=== PATIENT | male | born 1940 | race Caucasian/White ===

== ENCOUNTER 2017-04-16 08:52 | Day surgery (SDC) | payer OTHER ==
[~2017-04-16] VITALS: Ht 170.2 cm; Wt 77.7 kg
[2017-04-16 09:27] VITALS: BP 153/100; PULSE 58; RESP 16; TEMP 98.1; O2SAT 96
[2017-04-16] MEDS ORDERED: BRIM0.2S4 EACH EYE (09:38)
[2017-04-16] MEDS ORDERED: MULT1TAB PO (09:38)
[2017-04-16] MEDS ORDERED: TRAM50TA PO (09:38)
[2017-04-16] MEDS ORDERED: DORZ2SOL15 EACH EYE (09:38)
[2017-04-16] MEDS ORDERED: ASPI81TA11 PO (09:38)
[2017-04-16] MEDS ORDERED: LISI40TA PO (09:38)
[2017-04-16] MEDS ORDERED: VITA20003 PO (09:38)
[2017-04-16] MEDS ORDERED: DILT1TAB6 PO (09:38)
[2017-04-16] MEDS ORDERED: PROS5TAB PO (09:38)
[2017-04-16] MEDS ORDERED: TERA10CA3 PO (09:38)
[2017-04-16] MEDS ORDERED: LATA0.002 EACH EYE (09:38)
[2017-04-16 09:52] LABS: AUTOMATED NEUTROPHIL # 3.5 TH/MM3 (1.8-7.7); BASOPHIL # 0.1 TH/MM3 (0-0.2); BASOPHIL % 0.8 % (0.0-2.0); EOSINOPHIL # 0.3 TH/MM3 (0-0.4); EOSINOPHIL % 4.3 % (0.0-4.0); HEMATOCRIT 44.4 % (39.0-51.0); HEMO FLAGS DIFF FINAL; LYMPH % 36.3 % (9.0-44.0); LYMPHOCYTE # 2.5 TH/MM3 (1.0-4.8); MEAN CELL VOLUME 89.1 FL (80.0-100.0); MEAN CORPUSCULAR HEMOGLOBIN 30.7 PG (27.0-34.0); MEAN CORPUSCULAR HGB CONC 34.4 % (32.0-36.0); MONO % 7.9 % (0.0-8.0); NEUT % 50.7 % (16.0-70.0); PLATELET COUNT 178 TH/MM3 (150-450); RED BLOOD COUNT 4.98 MIL/MM3 (4.50-5.90); RED CELL DISTRIBUTION WIDTH 13.2 % (11.6-17.2); WHITE BLOOD COUNT 6.8 TH/MM3 (4.0-11.0)
[2017-04-16 10:01] LABS: APTT (PATIENT) 26.7 SEC (24.3-30.1); INTERNATIONAL NORMALIZED RATIO 1.1 RATIO; PROTHROMBIN TIME - PATIENT 11.8 SEC (9.8-11.6)
[2017-04-16 10:06] LABS: BICARBONATE 22.3 MEQ/L (21.0-32.0); POTASSIUM 3.7 MEQ/L (3.5-5.1)
[2017-04-16] MEDS ORDERED: HEPARIN-NS/PF INJ 500 ML ONE (10:40)
--- NOTE | 2017-04-16 10:41 | EKG ---
Date Performed: 04/16/2017 Time Performed: 09:34:28 PTAGE: 77 years EKG: Sinus rhythm . Left axis deviation Inferior infarct - age undetermined Abnormal ECG NO PREVIOUS TRACING DOCTOR: Jeffrey Valencia Interpretating Date/Time 04/16/2017 10:40:42
[2017-04-16] MEDS ORDERED: MIDAZOLAM HCL 2 MG/2 ML VIAL ONE (10:42)
[2017-04-16] MEDS ORDERED: VERAPAMIL HCL 5 MG/2 ML VIAL ONE (10:43)
[2017-04-16] MEDS ORDERED: HEPARIN SODIUM - IV 10,000 UNITS/10 ML VIAL ONE (10:43)
[2017-04-16] MEDS ORDERED: NITROGLYCERIN INJ 5 ML ONE (10:43)
[2017-04-16] MEDS ORDERED: NS 1000P @30 MLS/HR (KVO) IV SCH (11:30)
[2017-04-16] MEDS ORDERED: IOHEXOL 350 MG/ML 100 ML BTL (for Cath Lab) OTHER ONE (12:00)
--- NOTE | 2017-04-16 12:12 | CATHPROC ---
[facility] HIS Report Study Information Study Number Admission Scheduled Start Study Start [id number] Apr 16 2017 8:52AM 04/16/2017 Apr 16 2017 10:37AM [place] [facility] Cardiac Catheterization Admit Source Facility Department Other [facility] - R[facility] Rehab Physician and Clinical Staff Initial Viktor Jesus Wire Harness Design Engineerjt Mcdonough RN, Lorenzo Wire Harness Design EngineerVannessa Altamirano RN Other cathlab, cathlab Recorder Michelle Leger,CULLET CRUSHER TECH2 Scrub [employer],RT(R) (BS) Procedures Performed Procedure Location (Site) Vessel Name Coronary Angiograms LCA Left Coronary Coronary Angiograms RCA Right Coronary IVUS LEFT MAIN ARTERY-(11 Left Coronary L Heart Cath Wire insertion Radial (right) Radial Art. Equipment Time Production Painter Description Size Mfg Part Number Used/Scraped WIRE, BALANCE MIDDLEWEIGHT [id number] 11:36 [employer] 190CM Used 190CM *[id number] TRANSDUCER, TRUWAVE [id number] 10:38 KATHLEEN FELIPE * Used W/STOCKCOCK *[id number] *[id number] *[id number] *[id number] *[id number] 10:38 LAFASO PACK, CCL CUSTOM * Used *[id number] 10:38 LAFASO SUPPORT, ARTERIAL ADULT [id number] Used BAND, RADIAL COMPRESSION TR [id number] 11:55 [employer] MEDICAL 24CM Used SHORT 24 *[id number] 10:38 Coreworks WIRE, EXCHANGE 260CM 3MMJ 260CM Used *[id number] 10:38 NAMIC MANIFOLD, 4 PORT * Used *[id number] 10:38 NYCOMED OMNIPAQUE, 350 MG, 150ML 150ML [id number] Used [id number] 10:38 CARDOSO MEDICAL BLANKET,WARM AIR CCL * Used *[id number] 11:32 TERUMInstamedia MEDICAL SHEATH, FR6 TERUMO (10CM) FR 6 [id number] Used SHEATH, FR6 TRANSRADIAL 10:38 TERUMO MEDICAL FR 6 [id number] Used SLENDER 10CM CATHETER, [facility] [place] [id number] 11:33 VOLCANO Used IMAGING *[id number] History: Current Medications Medication Dosage/Unit Route Frequency Last Date/Time Taken ASA LISINOPRIL History: Allergies Allergy Reaction seasonal History: Risk Factors Family History of Hypertension Dyslipidemia Previous AL Previous Heart Failure Premature CAD Yes Yes No Yes No Prior Valve Prior PCI Prior CABG Surgery No No No Cerebrovascular Peripheral Artery Chronic Lung On Dialysis Diabetes Disease Disease Disease No No No No No History: Symptoms/Diagnosis Selection Items Angina-unstable History: Stress Tests Stress or Imaging Studies Performed Yes Standard Exercise Stress Test No Stress Echo No Stress Test SPECT No Stress Test CMR Stress Test CMR Result Stress Test CMR Ischemia Risk/Extent Yes Positive Intermediate Cardiac CTA Coronary Calcium Score No No History: Other Current Smoker No Labs Hgb (g/dl) Hct (%) RBC (MIL/MM3) WBC (l/cumm) Platelets (thousands) 11.60-17.00 35.00-51.00 4.00-5.90 4.00-11.00 150.00-450.00 15.3 44.4 4.9 6.8 178 BUN (mg/dl) 7.00-18.00 15 Na (meq/l) K (meq/l) 136.00-145.00 3.50-5.10 143 3.7 INR (PTT:PT) 0.90-1.10 1.1 Medication Medication Total Dose (Bolus/Oral) Medication Total Dosage/Unit 1% XYLOCAINE 10 mL FENTANYL 25 mcg HEPARIN 5600 units RADIAL COCKTAIL 5 mL (Bolus) VERSED 0.5 mg Medications (Bolus/Oral) Medication Time Given Dosage/Unit Administered By Reason 1% XYLOCAINE 04/16/2017 11:11:53 AM 10 mL cathlab, cathlab Patient arrived on 10 mL 1% XYLOCAINE given by cathlab, cathlab in Right Radial via Subcutaneous. Ord ered by Viktor Mckeon. VERSED 04/16/2017 11:13:02 AM 0.5 mg Lorenzo Mcdonough RN 0.5 mg VERSED given in lab by Lorenzo Mcdonough RN in Left Antecubital via Peripheral IV. Ordered by Viktor Christian. FENTANYL 04/16/2017 11:13:18 AM 25 mcg Lorenzo Mcdonough RN Patient arrived on 25 mcg FENTANYL given by Lorenzo Mcdonough RN in Left Antecubital via Peripheral IV. Or dered by Viktor Mckeon. Ntg 200mcg Verapamil 2.5mg Heparin RADIAL COCKTAIL 04/16/2017 11:14:00 AM 5 mL (Bolus) Viktor Mckeon 3000U 5 mL (Bolus) RADIAL COCKTAIL given in lab by Viktor Mckeon in Right Radial via Radial. Using [Joan ution Name]. Ordered by Viktor Mckeon. Reason: Ntg 200mcg Verapamil 2.5mg Heparin 3000U. HEPARIN 04/16/2017 11:29:45 AM 4600 units Lorenzo Mcdonough RN 4600 units HEPARIN given in lab by Lorenzo Mcdonough RN in Left Antecubital via Peripheral IV. Ordered by Viktor Mckeon. HEPARIN 04/16/2017 11:49:00 AM 1000 units Lorenzo Mcdonough RN 1000 units HEPARIN given in lab by Lorenzo Mcdonough RN in Left Antecubital via Peripheral IV. Ordered by Viktor Mckeon. Medication (Drip) Medication Time Given Dosage/Unit Concentration/Unit Diluent (ml) Solutio n IV Solutions 04/16/2017 10:37:17 AM 0 mL (IV) 500 NaCl .9 Patient arrived on IV Solutions given by madelin yusuf in Left Antecubital via Peripheral IV. Pump /Drip Flow = 20 ml/hr using NaCl .9. Ordered by Viktor Mckeon. Initial Case Assessment Cardiovascular HR Rhythm NIBP Chest Pain 53 SINUS JASON 158/89 0 Edema Present Skin color Skin None Normal Warm Dry Circulatory - Right Pulses Dorsalis Pedis Femoral 3 2 Scale (0,1,2,3,4,d) Circulatory - Left Pulses Dorsalis Pedis Femoral 3 2 Scale (0,1,2,3,4,d) Circulatory - Lower Extremities Color Lower Right Color Lower Left Normal Normal Neurological State Oriented to time-place- Alert Moves all extremities person Respiration - General Respiration Rate SpO2 (%) (B/min) 16 96 Initial Case Assessment Cardiovascular HR Rhythm NIBP Chest Pain 57 SINUS JASON 154/78 0 Edema Present Skin color Skin None Normal Warm Dry Circulatory - Right Pulses Dorsalis Pedis Femoral 3 2 Scale (0,1,2,3,4,d) Circulatory - Left Pulses Dorsalis Pedis Femoral 3 2 Scale (0,1,2,3,4,d) Circulatory - Lower Extremities Color Lower Right Color Lower Left Normal Normal Neurological State Oriented to time-place- Alert Moves all extremities person Respiration - General Respiration Rate SpO2 (%) (B/min) 16 96 Chronological Log Time Study Chronological Log 10:37:05 Patient arrived via Bed. 10:37:06 Patient Name, D.O.B, / Armband Verified By R.N. 10:37:06 Consent signed by the physician and the patient and verified by the Rn Rehab staff. 10:37:08 Pre-op and post- op instructions given; patient acknowledges understanding of instructions. 10:37:10 Patient has been NPO for More than 6Hrs. 10:37:11 NO Skin Breakdown- 10:37:13 Patient Warmer Placed on the Table. 10:37:16 A # 20 IV was noted in the Antecubital (left). Grade = 0 Patient arrived on IV Solutions given by cathlab, cathlab in Left Antecubital via Peripheral IV . Pump/Drip Flow = 20 10:37:17 ml/hr using NaCl .9. Ordered by Viktor Mckeon. 10:37:18 History and physical on the chart or being dictated. Vitals capture started with the following parameters, Patient=Adult, Interval=5 min, Initial Pr bvpyes=174 mmHg, 10:40:47 Deflation Rate=5 mmHg Assessment: Initial Case, HR=53 BPM, Rhythm=SINUS JASON, WKDE=467/89 mmhg, Chest Pain=0, Edema= None, Color=Normal, Skin = Warm, Dry Right Pulses: Johnny Ped=3, Femoral=2 Left Pulses: Johnny Ped=3, Femoral=2 10:41:01 Lower Right Extremities: Color=Normal Lower Left Extremities: Color=Normal Neurological: State=Alert, Ox3, POWELL Respiration: Resp=16 B/min, SpO2=96 % 10:41:17 Reference ECG taken 10:41:22 HR=55 bpm, MUKH=590/89 mmhg, SpO2=95.0 %, Resp=16 B/min, Pain=0, Bonnie=10, De Anda=2 10:46:25 HR=52 bpm, AZBX=127/86 mmhg, SpO2=95.0 %, Resp=13 B/min, Pain=0, Bonnie=10, De Anda=2 10:48:58 Right Radial and right groin prepped with 2% chlorhexidine, and with a 3 min. waiting time. 10:51:26 HR=57 bpm, ASEM=701/92 mmhg, SpO2=95.0 %, Resp=16 B/min, Pain=0, Bonnie=10, De Anda=2 10:57:12 HR=55 bpm, OWHT=451/89 mmhg, SpO2=94.0 %, Resp=15 B/min, Pain=0, Bonnie=10, De Anda=2 10:57:55 Pressure channel 1 zeroed. 11:01:28 HR=55 bpm, NSIK=636/87 mmhg, SpO2=95.0 %, Resp=15 B/min, Pain=0, Bonnie=10, De Anda=2 11:06:27 HR=56 bpm, LVAA=079/88 mmhg, SpO2=94.0 %, Resp=14 B/min, Pain=0, Bonnie=10, De Anda=2 11:11:26 HR=56 bpm, MKGT=846/88 mmhg, SpO2=94.0 %, Resp=21 B/min, Pain=0, Bonnie=10, De Anda=2 Time Out. Correct patient, correct procedure,correct physician, ,power injector loaded or not l oaded with contrast with 11:11:37 surgical team present. Time Out Concurred by MD, individual staff and VENTILATING ENGINEER in procedure 11:11:51 Case Start Patient arrived on 10 mL 1% XYLOCAINE given by madelin yusuf in Right Radial via Subcutaneou s. Ordered by 11:11:53 Viktor Mckeon. 11:13:02 0.5 mg VERSED given in lab by Lorenzo Mcdonough RN in Left Antecubital via Peripheral IV. Ordere d by Viktor Mckeon. Patient arrived on 25 mcg FENTANYL given by Lorenzo Mcdonough RN in Left Antecubital via Peripheral IV. Ordered by 11:13:18 Viktor Mckeon. 11:13:39 Access site was Radial Artery. A SHEATH, FR6 TRANSRADIAL SLENDER 10CM FR 6 was advanced into the Fem Art (right) using the Mod ified 11:13:50 Seldinger technique. 5 mL (Bolus) RADIAL COCKTAIL given in lab by Viktor Mckeon in Right Radial via Radial. Usin g [Solution Name]. 11:14:00 Ordered by Viktor Mckeon. Reason: Ntg 200mcg Verapamil 2.5mg Heparin 3000U. A JR 4.0 INFINITI CATHETER FR 5 was advanced over a wire. OMNIPAQUE, 350 MG, 150ML 150ML was us ed for 11:14:43 injections. Recorded Pressure: LV, HR=71, Condition=Condition 1 11:16:17 (Left Ventricle) LV 109/4/7 11:16:31 HR=73 bpm, NMLT=436/68 mmhg, SpO2=93.0 %, Resp=16 B/min Recorded Pressure: LV, Ao, HR=69, Condition=Condition 1 11:16:49 (Left Ventricle) LV 110/5/4, (Aorta) Ao 110/68/86 Recorded Pressure: Ao, HR=69, Condition=Condition 1 11:17:12 (Aorta) Ao 111/65/86 11:17:56 The RCA was injected and visualized at various angles. OMNIPAQUE, 350 MG, 150ML 150ML used . After removing the current catheter a JL 3.5 INFINITI CATHETER FR 5 was advanced over a WIRE, E XCHANGE 260CM 11:19:06 3MMJ 260CM. 11:21:18 HR=62 bpm, ZOGR=993/79 mmhg, SpO2=94 %, Resp=15 B/min, Pain=0, Bonnie=10, De Anda=2 11:22:42 The LCA was injected and visualized at various angles. OMNIPAQUE, 350 MG, 150ML 150ML used . 11:26:21 HR=60 bpm, JYFG=192/84 mmhg, SpO2=93 %, Resp=15 B/min, Pain=0, Bonnie=10, De Anda=2 After removing the current catheter a JR 4.0 INFINITI CATHETER FR 5 was advanced over a WIRE, E XCHANGE 260CM 11:27:10 3MMJ 260CM. 11:29:45 4600 units HEPARIN given in lab by Lorenzo Mcdonough RN in Left Antecubital via Peripheral IV. O rdered by Viktor Mckeon. 11:31:26 HR=59 bpm, TURZ=144/83 mmhg, SpO2=92.0 %, Resp=16 B/min, Pain=0, Bonnie=10, De Anda=2 A SHEATH, FR6 TERUMO (10CM) FR 6 was exchanged in the Radial (right). This was necessary in ord er to accomodate 11:32:47 a larger catheter. 11:33:11 Reference ECG taken A JL 4 ST GUIDE CATHETER FR 6 was advanced over a wire. OMNIPAQUE, 350 MG, 150ML 150ML was used for 11:33:31 injections. 11:36:27 HR=57 bpm, WXCN=205/84 mmhg, SpO2=92.0 %, Resp=16 B/min, Pain=0, Bonnie=10, De Anda=2 After removing the current catheter a JL 3.5 GUIDE CATHETER FR 6 was advanced over a WIRE, EXCH LEYDI 260CM 11:39:36 3MMJ 260CM. 11:41:29 HR=57 bpm, OBCH=157/82 mmhg, SpO2=92.0 %, Resp=14 B/min, Pain=0, Bonnie=10, De Anda=2 11:44:34 A WIRE, BALANCE MIDDLEWEIGHT 190CM 190CM was inserted via Radial (right). 11:46:23 An CATHETER, [facility] [place] [facility] was advanced through the lesion. Images saved onto IVUS hard drive 11:46:30 HR=57 bpm, LKKA=117/85 mmhg, SpO2=96.0 %, Resp=16 B/min, Pain=0, Bonnie=10, De Anda=2 11:47:16 IVUS in progress using CATHETER, [facility] [place] IM[facility] 11:49:00 1000 units HEPARIN given in lab by Lorenzo Mcdonough RN in Left Antecubital via Peripheral IV. O rdered by Viktor Mckeon. 11:51:31 HR=55 bpm, KXNK=460/78 mmhg, SpO2=94.0 %, Resp=2 B/min, Pain=0, Bonnie=10, De Anda=2 11:51:39 IVUS catheter removed 11:53:38 Wire removed 11:53:46 Catheter was removed 11:54:50 Case End Assessment: Initial Case, HR=57 BPM, Rhythm=SINUS JASON, SYGM=985/78 mmhg, Chest Pain=0, Edema= None, Color=Normal, Skin = Warm, Dry Right Pulses: Johnny Ped=3, Femoral=2 Left Pulses: Johnny Ped=3, Femoral=2 11:55:30 Lower Right Extremities: Color=Normal Lower Left Extremities: Color=Normal Neurological: State=Alert, Ox3, POWELL Respiration: Resp=16 B/min, SpO2=96 % Radial Compression Device Used. 15 mLs of air placed in BAND, RADIAL COMPRESSION TR SHORT 24 24 CM. Affected 11:56:14 hand 96 % O2 saturation. 11:56:30 HR=55 bpm, BJZK=650/86 mmhg, SpO2=95.0 %, Resp=19 B/min, Pain=0, Bonnie=10, De Anda=2 11:58:46 Sterile dressing applied to site 11:58:47 No case complications noted. 11:58:48 Cine recording checked. 11:59:31 Bedside Report will be given. 11:59:33 Contrast Scanned 11:59:59 A Left Heart Cath was performed. 12:01:31 SANE=073/88 mmhg, SpO2=94.0 %, Pain=0, Bonnie=10, De Anda=2 12:05:00 Patient moved to stretcher End Study - Contrast Media Used In Study Contrast Total Opened (mL) Total Used (mL) Total Wasted (mL) Omnipaque 75 75 0 End Study - Radiation Exposure Fluoro Time (minutes) 11.1 End Study - Patient Disposition Complications Transferred To Telemetry Bed
[2017-04-16] MEDS ORDERED: MISC INFORMATION XX ONE (12:15)
--- NOTE | 2017-04-16 23:41 | MA ---
cc: ISABELL MENDES DO DATE April 16, 2017 PROCEDURE Left heart catheterization, coronary angiogram, IVUS left main, sedation 40 minutes. PREPROCEDURE DIAGNOSIS Significant shortness of breath, abnormal stress test with borderline TID. POSTPROCEDURE DIAGNOSIS Mild coronary artery disease. MEDICATIONS 1. Verapamil 2.5 milligrams. 2. Nitro 200 micrograms. 3. Heparin 8600 units. 4. Fentanyl 25 micrograms. 5. Versed 0.5 milligrams. CONTRAST 75 cc. FLUOROSCOPY 11.1 minutes. SEDATION 40 minutes. ESTIMATED BLOOD LOSS 10 cc. PROCEDURAL SUMMARY Fabricio Gautam is a pleasant 77-year-old male who previously saw myself in the office due to significant shortness of breath. He underwent pharmacologic nuclear stress testing which showed possible ischemia in the inferior territory with borderline TID of 1.34. Because of this he was recommended cardiac catheterization. Risks, benefits and alternatives were explained to him and he consented as such. He was brought to the lab and prepped in the usual sterile fashion. The right radial artery was accessed using a modified Seldinger technique and placement of a 5/6 Moroccan sheath. This was easily aspirated and flushed. A JR-4 catheter was advanced over a J-wire to the ascending aorta and across the aortic valve into the left ventricle for measurement of pressure. This was pulled back across the aortic valve showing no significant gradient of aortic stenosis. JR-4 was used for selective angiography of the right coronary system. This was then exchanged for a JL-3.5 which was used for selective angiography of the left coronary system. There is concern for ostial left main disease and it was felt that this needed to be further interrogated as the patient did have a TID on stress testing. JL-3.5 was exchanged for a JL-4 guide and additional heparin was given. JL-4 guide was unable to engage the left main and while this was being removed over a J-wire the radial sheath was accidentally pulled out of the radial arteriotomy site. I was unable to advance it further and so at that time guide and sheath were pulled and a VHSquared 6-Moroccan sheath was then advanced into the position in the radial arteriotomy site. A JL-3.5 guide was then advanced over a J-wire and into position to engage the left main. A BMW wire was then advanced down the LAD, an IVUS catheter was then placed in the left main and pulled back slowly while recording. Review of imaging shows that left main at its smallest area was 9.6 mm squared. BMW wire was then pulled. Final shot shows no disruption of the arteries. JL-3.5 catheter was then removed over a J-wire. A radial band was placed over the arteriotomy site for hemostasis. 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 FINDINGS Left main: Relatively short vessel. There is a 30% lesion at the ostium which ___ does make it appear worse. Area by IVUS was 9.6 mm squared. LAD: Proximal portion has 10% diffuse disease with overall 20% diffuse disease distally with tortuosity. It gives off one major diagonal which has no significant disease. Left circumflex: Large vessel, area with mild luminal irregularities throughout the midportion but no significant disease otherwise. Gives off one major obtuse marginal which is overall tortuous with no significant disease. RCA: Normal-size vessel with a 30% smooth lesion in the midportion. It is a dominant vessel in nature and does not have any significant disease in the distal portion. Left ventricular end-diastolic pressure 6. IMPRESSION 1. Shortness of breath. 2. Mild coronary artery disease by cardiac catheterization as above. RECOMMENDATIONS 1. Mr. Gautam appears to have mild coronary artery disease by cardiac catheterization. 2. As far as his shortness of breath goes he should consider pulmonary workup for completeness. 3. He will be watched for 3 hours postprocedure and discharged home. Thank you for allowing me to see Fabricio Gautam. If there are any questions please do not hesitate to call. Isabell Mendes DO VGP/EO /10:43 PM /11:29 PM
== END 2017-04-16 16:53 | disposition home or self-care (01) ==
LOC: HDOC 08:52 → HDIC 08:53 → HDOC 16:53
PROVIDERS: ATTEND Nuclear Medicine Nuclear Cardiology
DX: I25.10 Atherosclerotic heart disease of native coronary artery without angina pectoris (principal); R06.02 Shortness of breath; R94.39 Abnormal result of other cardiovascular function study; I10 Essential (primary) hypertension; E78.5 Hyperlipidemia, unspecified; H40.9 Unspecified glaucoma
CPT/HCPCS: 80048; 85025; 85610; 85730; 92978; 93005; 93454; C1753; C1769; C1887; C1893; J1644; J2250; J3010; Q9967